=== PATIENT | male | born 1980 | race African-American/Black ===

== ENCOUNTER 2020-09-04 05:51 | Day surgery (SDC) | payer SELFPAY ==
[2020-08-30 09:47] VITALS: BMI 36.2
[2020-09-04] MEDS ORDERED: fentaNYL CITRATE 250 MCG/5 ML VIAL ONE (07:20)
[2020-09-04] MEDS ORDERED: SUCCINYLCHOLINE CHLORIDE 200 MG/10 ML SYRINGE ONE (07:21)
[2020-09-04] MEDS ORDERED: MIDAZOLAM HCL 2 MG/2 ML SINGLE DOSE VIAL ONE (07:21)
[2020-09-04] MEDS ORDERED: PROPOFOL 20 ML ONE ×11 (07:21→11:48)
[2020-09-04] MEDS ORDERED: BACITRACIN 15 GM TUBE TOPICAL OINTMENT ONE (07:29)
[2020-09-04] MEDS ORDERED: EPINEPHrine/PF 1 MG/1 ML (1:1,000) AMPULE ONE ×3 (07:29→10:45)
[2020-09-04] MEDS ORDERED: LIDOCAINE HCL 1%, 10 MG/ML (20ML VIAL) ONE ×2 (07:29→08:10)
[2020-09-04] MEDS ORDERED: SEVOFLURANE 250 ML BTL ONE (10:12)
[2020-09-04] MEDS ORDERED: ceFAZolin SODIUM 1 GM VIAL ONE ×2 (12:11)
[2020-09-04] MEDS ORDERED: PROMETHAZINE HCL 25 MG/1 ML VIAL IVPB PRN (12:55)
[2020-09-04] MEDS ORDERED: oxyCODONE HCL 5 MG TABLET PO PRN ×3 (12:55→13:04)
[2020-09-04] MEDS ORDERED: ONDANSETRON 4 MG/2 ML VIAL IVPUSH PRN (12:55)
[2020-09-04] MEDS ORDERED: ONDANSETRON 4 MG/2 ML VIAL IVPB PRN (13:04)
[2020-09-04] MEDS ORDERED: LACTATED RINGERS SOLUTION 1,000 ML IV SCH (13:15)
[2020-09-04 16:18] LABS: HEMATOCRIT 36.9 % (35.4-49); HEMOGLOBIN 12.1 GM/dl (11.7-16.9); MCH 30.8 pg (25.7-33.7); MCHC 32.7 g/dl (32.0-35.9); MEAN CELL VOLUME 94.3 fl (80-96); PLATELET COUNT 126 K/MM3 (134-434); RBC 3.91 M/mm3 (4.00-5.60); RDW 14.5 % (11.9-15.9); WHITE BLOOD COUNT 18.8 K/mm3 (4.0-10.8)
[2020-09-04] MEDS ORDERED: SODIUM CHLORIDE 0.45% 1,000 ML IV SCH (18:15)
[2020-09-04] MEDS: CEFAZOLIN 1 GM/D5W 1 GM/50 ML BAG IVPB SCH (19:24)
[2020-09-04] MEDS: oxyCODONE HCL 5 MG TABLET PO PRN (21:30)
[2020-09-04] MEDS ORDERED: ATORVASTATIN CA 40 MG TABLET (FP) PO SCH (22:00)
[2020-09-04] MEDS ORDERED: ACETAMINOPHEN 325 MG TABLET (FP) PO ONE (22:06)
[2020-09-05] MEDS: CEFAZOLIN 1 GM/D5W 1 GM/50 ML BAG IVPB SCH ×2 (00:07→06:22)
[2020-09-05] MEDS: oxyCODONE HCL 5 MG TABLET PO PRN (06:21)
[2020-09-05 08:14] VITALS: BP 131/83; PULSE 88; TEMP 98
== END 2020-09-05 08:25 | disposition home or self-care (01) ==
LOC: FASU 05:51 → FM/S 18:47 → FASU 09-05 08:25
PROVIDERS: ATTEND Plastic Surgery
CPT/HCPCS: 36415; 82962; 85027; 88304-TC; 94760